=== PATIENT | male | born 1975 | race Caucasian/White ===

== ENCOUNTER → 2017-03-13 | Outpatient (CLI) | payer MEDICARE, MEDICAID ==
[~2017-03-13] MED LIST: AMBIEN 5MG TAB5 MG PO; BUSPAR 10MG TAB10 MG PO; INDERAL10 MG; LEXAPRO 10 MG T10 MG; LITHATE5 MG PO; PREDNISONE 20MG20 MG PO; TESSALON PERLE100 MG PO; ZITHROMAX Z PA250 MG PO
[2017-03-13 15:02] LABS: BILIRUBIN, INDIRECT 0.53 mg/dL (0-0.9)
== END ==
LOC: CARL-LAB 08:36
PROVIDERS: Psychiatry & Neurology Psychiatry
DX: F33.1 Major depressive disorder, recurrent, moderate (principal)